=== PATIENT | male | born 1990 | race Two or more races ===

== ENCOUNTER 2016-12-15 18:45 | Inpatient (IN) | payer OTHER ==
[~2016-12-15] VITALS: Ht 170.2 cm; Wt 69.9 kg
[2016-12-15] MEDS ORDERED: ADENOSINE 6 MG/2 ML VIAL IVP ONE ×2 (18:53→18:55)
[2016-12-15 18:55] VITALS: BP 154/71
[2016-12-15] MEDS ORDERED: DILTIAZEM 25 MG/5 ML VIAL IVP ONE ×3 (18:55→19:30)
--- NOTE | 2016-12-15 19:07 | NUR ---
PATIENT IS A 26 YO MALE BIB EMS FROM HOME FOR RAPID HEART RATE, HE IS IN SVT GIVEN 2 DOSES OF ADENOSINE ENROUTE AND THEN ANOTHER 12 ON ARRIVAL. NO CHANGE THEN GIVEN 20 OF CARDIZEM HE IS STABLE AT THIS TIME.
[2016-12-15] MEDS ORDERED: DILTIAZEM 125 MG in DEXTROSE 5% 100 ML IV ONE (19:30)
[2016-12-15] MEDS ORDERED: NACL 0.9% 1,000 ML IV ONE (19:30)
[2016-12-15] MEDS ORDERED: DILTIAZEM 125 MG/25 ML VIAL IV ONE (19:38)
--- NOTE | 2016-12-15 19:39 | NUR ---
Dr. Colin evaluating patient at bedside.
[2016-12-15] MEDS ORDERED: diphenhydrAMINE 50 MG/ML VIAL IVP ONE (20:15)
--- NOTE | 2016-12-15 20:31 | NUR ---
ASSUMED CARE FOR CLIENT 1927,CLIENT ALERT & ORIENTED X4,DENIES PAIN,ON SPO2/CARDAIC MONITOR,NOT SYMPTOMATIC AT THIS TIME,MED CARDIZIAM 20MG SLOW IV PUSH GIVEN,CARDIAZEM DRIP STARTED PROTOCCAL
[2016-12-15 20:47] LABS: HEMATOCRIT 44.2 % (36-52); HEMOGLOBIN 14.7 g/dL (12.0-18.0); MEAN CORPUSCULAR HEMOGLOBIN 28 pg (27-31); MEAN CORPUSCULAR HGB CONC 33 g/dL (33-37); MEAN CORPUSCULAR VOLUME 85 fL (80-94); PLATELET COUNT (AUTO) 278 K/uL (140-450); RED BLOOD CELL COUNT(AUTO) 5.21 MIL/uL (4.20-6.10); RED CELL DISTRIBUTION WIDTH 12.4 % (11.6-13.7); WHITE BLOOD COUNT (AUTO) 11.7 K/uL (4.8-10.8)
[2016-12-15 20:57] LABS: ANION GAP 12.7 (8-16); CARBON DIOXIDE 27.7 mmol/L (21-32); CREATININE 0.9 mg/dL (0.7-1.3); POTASSIUM 4.4 mmol/L (3.5-5.1)
[2016-12-15 21:02] LABS: LYMPHOCYTES % (MANUAL) 12 % (20-46); MONOCYTES % (MANUAL) 2 % (5-12)
[2016-12-15 21:05] LABS: ALBUMIN 4.3 g/dL (3.4-5.0); TOTAL BILIRUBIN 0.1 mg/dL (0.0-1.0)
[2016-12-15 21:06] LABS: ACETAMINOPHEN < 0.5 ug/ml (10-30); SALICYLATE < 2.8 mg/dL (2.8-20.0)
--- NOTE | 2016-12-15 21:19 | NUR ---
iV DITILIAM TITRATED TO 15 AT 2105,B/P WAS 124/76,HR 128,JUST BEFORE THE CHANGE,CLIENT STATUS THE SAME.
[2016-12-15] MEDS ORDERED: methylPREDNISolone SS 125 MG/2 ML VIAL IVP ONE (22:05)
[2016-12-15 22:15] LABS: BARBITURATE, URINE NEG. ng/ml (NEG <=200); BENZODIAZEPINE, URINE NEG. ng/mL (NEG <=200); CANNABINOID, URINE POS. ng/mL (NEG <=50); COCAINE, URINE NEG. ng/mL (NEG <=300); OPIATE, URINE NEG. ng/mL (NEG <=2000); PHENCYCLIDINE SCREEN,URINE NEG. ng/mL (NEG <=25)
[2016-12-15] MEDS ORDERED: LORazepam 2 MG/ML VIAL IVP PRN (22:35)
[2016-12-15] MEDS ORDERED: MORPHINE SULFATE 2 MG/ML SYR IVP PRN (22:35)
[2016-12-15] MEDS ORDERED: ONDANSETRON 4 MG/2 ML VIAL IVP PRN (22:35)
--- NOTE | 2016-12-15 23:13 | NUR ---
REPORT GIVEN TO IVCKI JAMES,CLIENT REMAINS ALERT & ORIENTED X4,DENIES PAIN,HR 122-123,OTHER VITALS STABLE,CLIENT IS ADMITTED.
--- NOTE | 2016-12-15 23:35 | NUR ---
PT IS BEING ADMITTED TO THE ICU BED 6 VIA [facility] WITH 3 ER STAFF. ALERT AND VERBALLY RESPONSE. ABLE TO TRANSFER FROM GURNEY TO BED WITH MINIMAL ASSISTANCE. WILL ADMIT THE PT AND CONTINUE WITH ASSESSMENT. 3 FAMILY MEMBERS AT BED SIDE AT THIS TIME.
[2016-12-15] MEDS: DEXT 5% /NACL 0.9% 1,000 ML IV SCH (23:40)
[2016-12-16] VITALS (17 sets, daily range): BP systolic 108–145; BP diastolic 45–78
[2016-12-16] MEDS ORDERED: DILTIAZEM 125 MG in DEXTROSE 5% 100 ML IV SCH (00:15)
--- NOTE | 2016-12-16 00:15 | NUR ---
FOR CONSULTATION TO TOBACCO SORTER DR. DAMION DUMONT; INFORMED HIM OF THIS NEW CONSULT AND HE ORDERED TO CONTINUE THE CARDIZEM DRIP PER PROTOCOL; CARRIED OUT.
--- NOTE | 2016-12-16 00:30 | NUR ---
PT IS ALERT AND ORIENTED X4. PERRLA. SPEAKS AND UNDERSTAND MALAGASY WELL. PT ON CARDIAC MONITORING. ON CARDIZEM DRIP. BILATERAL LUNGS SOUND CLEAR. ROOM AIR. DENIES ANY PAIN OR DISCOMFORT. S1 AND S2 HEARD. PERIPHERAL LINE TO LEFT AC #18 AND LEFT HAND #20. PATENT AND NO S/SX OF INFILTRATION OR PHLEBITIS. BOWEL SOUNDS HEARD FROM ALL 4 QUADRANTS. PT ABLE TO MOVE ALL EXTREMITIES. USES URINAL. APPLIED NON SKID SOCKS. SKIN INTACT. FAMILY MEMBERS LEFT WITH PT'S BELONGINGS. ADMISSION ASSESSMENT COMPLETED. CALL LIGHT IN REACH. BED KEPT TO THE LOWEST POSITION. WILL CONTINUE TO MONITOR.
--- NOTE | 2016-12-16 01:10 | NUR ---
DECREASED CARDIZEM DRIP TO 10 MG/HR. PULSE 89. BP 116/50. WILL CONTINUE TO MONITOR. PT AWAKE AND EXPLAINED AND UNDERSTOOD.
--- NOTE | 2016-12-16 01:24 | NUR ---
INCREASED CARDIZEM TO 5 MG/HR. PULSE 87. BP 118/52. PT AWAKE AND EXPLAINED AND UNDERSTOOD. WILL CONTINUE TO MONITOR.
--- NOTE | 2016-12-16 01:40 | NUR ---
CARDIZEM DRIP STOPPED. PULSE 81. BP 108/48. PT IS AWAKE AND AWARE OF THE STOPPING OF THE CARDIZEM. DENIES ANY PAIN OR DISCOMFORT AND NO ACUTE DISTRESS. CALL LIGHT IN REACH AND BED IS TO THE LOWEST POSITION. WILL CONTINUE TO MONITOR.
--- NOTE | 2016-12-16 02:00 | NUR ---
PT AWAKE AND DENIES ANY DISCOMFORT. PULSE 79. BP 112/52. WILL CONTINUE TO MONITOR.
--- NOTE | 2016-12-16 03:54 | NUR ---
PT SLEEPING. CONTINUE WITH CARDIAC MONITORING. NO ACUTE DISTRESS NOTED AT THIS TIME. CALL LIGHT IN REACH AND BED TO LOWEST POSITION. WILL CONTINUE TO MONITOR.
--- NOTE | 2016-12-16 04:56 | NUR ---
PT EYE CLOSED. EASILY AWAKEN. CONTINUES WITH CARDIAC MONITORING. DENIES ANY PAIN OR DISCOMFORT. NO ACUTE DISTRESS NOTED. CALL LIGHT IN REACH AND BED TO THE LOWEST POSITION. WILL CONTINUE TO MONITOR.
[2016-12-16 05:17] LABS: CREATINE KINASE MB 0.4 ng/mL (0-3.6)
--- NOTE | 2016-12-16 06:09 | NUR ---
PT SLEEPING AT THIS TIME. CONTINUES WITH CARDIAC MONITORING AND HR OF 74 AND BP OF 111/45. NO ACUTE DISTRESS NOTED. CALL LIGHT IN REACH AND BED IS TO THE LOWEST POSITION. WILL CONTINUE TO MONITOR.
[2016-12-16 07:17] LABS: PHOSPHORUS 3.1 mg/dL (2.5-4.9)
--- NOTE | 2016-12-16 07:17 | NUR ---
REPORT GIVEN TO VICKI HERNANDEZ AT BED SIDE FOR CONTINUITY OF CARE. PT IS AWAKE AND STABLE.
--- NOTE | 2016-12-16 07:30 | NUR ---
RECEIVED REPORT FROM PRIMER INSERTING MACHINE ADJUSTER RN. PT AOX4, BEDSIDE MONITOR SHOWS SR AT THIS TIME. ROOM AIR, NO S/S OF RESPIRATORY DISTRESS NOTED. LUNG SOUND CLEAR, ABDOMEN SOFT WITH ACTIVE BOWEL SOUND, PT ABLE TO MOVE ALL HIS EXTREMITIES, IV SITE INTACT AND PATENT. POC EXPLAINED TO PT, PT VERBALIZED UNDERSTANDING, CALL LIGHT IN REACH, WILL [id number] TO MONITOR.
--- NOTE | 2016-12-16 09:00 | NUR ---
PT USE URINAL AND VOIDS CLEAR YELLOW URINE 400 ML.
[2016-12-16] MEDS: DEXT 5% /NACL 0.9% 1,000 ML IV SCH (09:32)
[2016-12-16] MEDS ORDERED: PROBIOTIC SCREEN 1 EA MISC MC PRN (10:10)
--- NOTE | 2016-12-16 12:05 | NUR ---
LUNCH TRAY SERVED, PT ATE 50% OF THE TRAY.
[2016-12-16 12:55] LABS: CREATINE KINASE MB 0.4 ng/mL (0-3.6)
[2016-12-16] MEDS ORDERED: SODIUM CHLORIDE FLUSH 10 ML SYR IVF SCH (13:00)
--- NOTE | 2016-12-16 13:06 | NUR ---
CM NOTE PER ADDIS HECTOR OF ADMITTING WHO IS COVERING FOR PASTRY WRAPPER ROSA, REVIEW SHOULD BE SENT TO [facility] FAX# [phone] JOSE Ansari # [phone], PENDING PRE-CERT# [id number] INITIAL REVIEW FAXED TO [facility] [phone] JOSE Ansari # [phone], PENDING PRE-CERT# [id number]
--- NOTE | 2016-12-16 13:46 | NUR ---
PT USE URINAL, VOIDS CLEAR YELLOW URINE 450ML
--- NOTE | 2016-12-16 15:00 | NUR ---
OFFERED PT FLU VAC, PT REFUSED.
--- NOTE | 2016-12-16 15:30 | NUR ---
PT AWAKE, ALERT, AND ORIENTED. ROOM AIR. NO S/S OF RESPIRATORY DISTRESS NOTED. BEDSIDE MONITOR SHOWS SR. BP 133/76.O2 SAT 97%. PT SIGNED ALL THE DISCHARGE INSTRUCTIONS AND VERBALIZED UNDERSTANDING , PT WILL HAVE APPOINTMENT WITH .Y, PHONE NUMBER PROVIDED. ARM BAND REMOVED, IV D/C ED. ALL PERSONAL BELONGINGS WITH PT, PT WALKED OUT OF UNIT WITH STEADY GAIT, CHARGE NURSE ACCOMPANIED PT TO PARKING LOT.
== END 2016-12-16 15:30 | disposition home or self-care (01) | DRG 310 ==
LOC: MED 18:45 → MIC 22:33
PROVIDERS: ADMIT Preventive Medicine Preventive Medicine/Occupational Environmental Medicine; ATTEND Preventive Medicine Preventive Medicine/Occupational Environmental Medicine
DX: I47.1 Supraventricular tachycardia (principal); D72.829 Elevated white blood cell count, unspecified; F12.10 Cannabis abuse, uncomplicated
CPT/HCPCS: 36415; 71010; 80053; 80305; 82550; 82553; 83735; 83880; 84100; 84484; 85025; 87040; 87081; 93005; 96374; 96375; 96376; 99285; G0480; G0482; J0153; J1200; J1644; J2930; J3490; J7042; J7060; Q0092